=== PATIENT | female | born 1980 | race Caucasian/White ===

== ENCOUNTER 2020-01-27 14:54 | Emergency (ER) | payer MEDICAID, MEDICARE ==
[~2020-01-27] VITALS: Ht 152.4 cm; Wt 108.9 kg
[2020-01-27 15:06] VITALS: BP 112/72
--- NOTE | 2020-01-27 15:06 | Emergency Room Report ---
History of Present Illness General Chief Complaint: Abnormal Labs Source: Patient (Emmanuel Gorman MD) Present Illness HPI Patient is a 39-year-old female presents for increased generalized body aches and weakness. Reports having recent hospitalization approximately 1 week ago. States that she has multiple medication allergies. States she recently traveled from [place]. Patient denies any recent trauma. Reports having discomfort to her teeth. She states that she is currently taking Suboxone as well as multiple medications for hypertension and diabetes. She is on Lantus. Blood sugar was noted to be approximately 400 by EMS. Patient states she was recently hospitalized in [place] and left the hospital AGAINST MEDICAL ADVICE.Metformin but did not take Lantus. (Emmanuel Gorman MD) Allergies: Coded Allergies: HALOPERIDOL (Verified Allergy, Unknown, 01/27/20) PROMETHAZINE (Verified Allergy, Unknown, 01/27/20) COVID-19 Screening Contact w/high risk pt: No Experienced COVID-19 symptoms?: No COVID-19 Testing performed CLIMATE CHANGE RISK ASSESSOR: No (Emmanuel Gorman MD) Patient History Past Medical History: see triage record Reviewed Nursing Documentation: PMH: Agreed; PSxH: Agreed (Emmanuel Gorman MD) Nursing Documentation-PMH Past Medical History: No History, Except For Hx Hypertension: Yes Hx Diabetes: Yes Hx Cerebrovascular Accident: Yes (Emmanuel Gorman MD) Review of Systems All Other Systems: negative except mentioned in HPI (Emmanuel Gorman MD) Physical Exam Vital Signs Date Time Temp Pulse Resp B/P (MAP) Pulse Ox O2 Delivery O2 Flow Rate FiO2 01/27/20 14:56 98.2 74 16 112/72 (85) 100 Room Air Sp02 EP Interpretation: reviewed, normal General Appearance: normal inspection, no apparent distress, alert, GCS 15, non-toxic, obese Head: atraumatic ENT: normal ENT inspection, hearing grossly normal, normal voice Neck: normal inspection, full range of motion, supple, no bony tend Respiratory: normal inspection, lungs clear, normal breath sounds, no respiratory distress, no retraction, no wheezing Cardiovascular #1: regular rate, rhythm, no edema Gastrointestinal: normal inspection, normal bowel sounds, non tender, soft, no guarding, no hernia Genitourinary: no CVA tenderness Musculoskeletal: normal inspection, back normal, normal range of motion Neurologic: alert, motor strength/tone normal, responsive, speech normal, normal inspection Psychiatric: normal inspection, judgement/insight normal, mood/affect normal (Emmanuel Gorman MD) Procedures Critical Care Time Critical Care Time Total Critical Care Time: 60 min bedside evaluation and treatment excludes procedures (EKG). Reason for critical care: evaluation of hemiparesis, discussion with acute stroke MD, repeat evaluations - sedation and repeat neurologic exams, glycemic control Possible complications: hypotension, hypertension, ID, shock, arrhythmias, metabolic acidosis, end organ damage, respiratory failure. Interventions: initiation of transfer to higher level of care, repeat evaluations, sedation - repeat exams, discussions with family Course:Patient initially presented post collapse. She took her own Suboxone leading to respiratory depression and administration of Narcan. She was observed through the night. At attempted discharge in the AM the patient demonstrated new left hemiparesis. Second workup undertaken. Immediate discussion with Dr. Linares at [facility]. Patient outside of window for tPA and possibly intervention, however she considered taking the patient. Patient with nausea - treated with Reglan and Benadryl. Increased agitation. Ativan given. Unable to sedate. Haldol given (tolerated with improvement although in the face of reported allergy). Repeat evaluations. Discussion of plan with sister and brother. Improved, but Ativan needed to be repeated. Initially declined by Maria. Recall Dr. Linares. Contact [facility] and presented. Accepted by Maria. Patient improved from agitated state but worsened from presentation. Consultations: nursing staff, family, Maria LAMAS - several calls, [facility] transfer Performed by: Dr. Loco Tolerated well condition = serious (Jaun Loco MD) Medical Decision Making Diagnostic Impression: Primary Impression: Stroke Qualified Codes: I63.9 - Cerebral infarction, unspecified Additional Impressions: Hyperglycemia Noncompliance with medications Opiate abuse, episodic Hemiparesis Qualified Codes: G81.94 - Hemiplegia, unspecified affecting left nondominant side ER Course Patient present for increased generalized weakness and elevated blood sugar. Differential diagnosis include was not limited to medication noncompliance, dental infection, urinary tract infection, among others. Because of complexity of patient's case laboratory tests and imaging studies were ordered. Diabetes and is reportedly supposed to take Lantus daily. She reports not taking her Lantus today. Patient was given IV fluids as well as IV insulin. She was started on IV hydration. She was given oral amoxicillin due to presumed dental carry infection. Patient apparently consumed Suboxone while in the emergency department. Patient was noted to be somnolent with diminished oxygen saturation and was therefore given 2 mg of IV Narcan. Patient had subsequent improvement in her mental status. CT imaging of the head showed findings consistent with recent CVA. Patient is noted to have improvement in her blood sugar over time. She was given Rocephin for urinary tract infection.Patient was endorsed to the oncoming physician Labs Test 01/27/20 15:08 01/27/20 16:39 01/27/20 17:54 White Blood Count 16.3 K/UL (4.8-10.8) Red Blood Count 5.37 M/UL (4.20-5.40) Hemoglobin 14.4 G/DL (12.0-16.0) Hematocrit 42.0 % (37.0-47.0) Mean Corpuscular Volume 78 FL (80-99) Mean Corpuscular Hemoglobin 26.8 PG (27.0-31.0) Mean Corpuscular Hemoglobin Concent 34.3 G/DL (32.0-36.0) Red Cell Distribution Width 12.7 % (11.6-14.8) Platelet Count 264 K/UL (150-450) Mean Platelet Volume 7.7 FL (6.5-10.1) Neutrophils (%) (Auto) 59.4 % (45.0-75.0) Lymphocytes (%) (Auto) 25.7 % (20.0-45.0) Monocytes (%) (Auto) 7.3 % (1.0-10.0) Eosinophils (%) (Auto) 1.8 % (0.0-3.0) Basophils (%) (Auto) 5.8 % (0.0-2.0) Sodium Level 136 MMOL/L (136-145) Potassium Level 3.4 MMOL/L (3.5-5.1) Chloride Level 99 MMOL/L (98-107) Carbon Dioxide Level 26 MMOL/L (21-32) Anion Gap 11 mmol/L (5-15) Blood Urea Nitrogen 17 mg/dL (7-18) Creatinine 1.1 MG/DL (0.55-1.30) Estimat Glomerular Filtration Rate 55.0 mL/min (>60) Glucose Level 439 MG/DL (74-106) Calcium Level 9.3 MG/DL (8.5-10.1) Total Bilirubin 0.5 MG/DL (0.2-1.0) Aspartate Amino Transf (AST/SGOT) 17 U/L (15-37) Alanine Aminotransferase (ALT/SGPT) 33 U/L (12-78) Alkaline Phosphatase 89 U/L (46-116) Troponin I 0.009 ng/mL (0.000-0.056) C-Reactive Protein, Quantitative 1.7 mg/dL (0.00-0.90) Total Protein 6.8 G/DL (6.4-8.2) Albumin 3.4 G/DL (3.4-5.0) Globulin 3.4 g/dL Albumin/Globulin Ratio 1.0 (1.0-2.7) Lipase 77 U/L (73-393) Serum Alcohol < 3 mg/dL Urine Color Yellow Urine Appearance Cloudy Urine pH 5 (4.5-8.0) Urine Specific [place] 1.015 (1.005-1.035) Urine Protein 2+ (NEGATIVE) Urine Glucose (UA) 4+ (NEGATIVE) Urine Ketones Negative (NEGATIVE) Urine Blood Negative (NEGATIVE) Urine Nitrite Negative (NEGATIVE) Urine Bilirubin Negative (NEGATIVE) Urine Urobilinogen Normal MG/DL (0.0-1.0) Urine Leukocyte Esterase Negative (NEGATIVE) Urine RBC 0-2 /HPF (0 - 2) Urine WBC 2-4 /HPF (0 - 2) Urine Squamous Epithelial Cells Many /LPF (NONE/OCC) Urine Bacteria Moderate /HPF (NONE) Urine Yeast Moderate /HPF (NONE) Urine HCG, Qualitative Negative (NEGATIVE) Urine Opiates Screen Negative (NEGATIVE) Urine Barbiturates Screen Negative (NEGATIVE) Phencyclidine (PCP) Screen Negative (NEGATIVE) Urine Amphetamines Screen Negative (NEGATIVE) Urine Benzodiazepines Screen Negative (NEGATIVE) Urine Cocaine Screen Negative (NEGATIVE) Urine Marijuana (THC) Screen Negative (NEGATIVE) POC Whole Blood Glucose 228 MG/DL (74-106) (Emmanuel Gorman MD) ER Course See above note. H/O stroke in [facility] 1 week ago with patient signing out AMA to attend sister's birthday constitution party at the [facility]. She collapsed there and was brought to the ED by EMS. In the ED she apparently took her own Suboxone (from her purse) and had decreased oxygen saturation requiring administration of Narcan. She awoke fully after Narcan and was agitated. She was observed using both hands after being awakened. Patient was observed for several hours after. Patient had been observed in no distress talking on her phone using both hands. However, at 00:20 patient stated she could not use her left arm as reported in nursing notes. Unclear exact "last known well time". When confronted with discharge in the AM she stated she could not walk and stated her "arms were not working". In the waiting room, patient lay on the floor and went to sleep. Family did not come. Patient brought back into ED treatment area for re-evaluation as directed by hand hose cutter and me. My initial evaluation of the patient revealed the patient has left hemiparesis with upgoing toe on the left-hand side. She is alert and speaking without difficulty. Possible R gaze preference with some L facial weakness. Not hypoglycemic. Repeating laboratory studies and CT. EKG normal sinus rhythm. See labs below. Suggestion of subacute stroke on CT (R frontal). Immediately discussed with Dr. Linares at [facility]. She feels outside of window for thrombolytics. Arranging for transfer for subacute stroke. Patient c/o nausea and headache. Reglan and benadryl ordered. 1132 More agitated after Reglan/Benadryl. Ativan ordered. Soft restraint as trying to pull out palencia. Not using L hand. (Soft restraint never used.) Continued agitation. Haldol ordered verbally. When attempt to enter - Haldol allergy noted and order cancelled. It had apparently been given already. Patient improved after Haldol and no signs of allergy. 1249 Patient agitation improved. Discussed with sister, Yvrose and brother, All who understand assessment and treatment plan. [facility] called back and apparently considering not accepting patient. Discussed ag ain with Dr. Linares. She will discuss with others. Claire Rivera. 1500 Discussed with Miguel. Accepted by Maria 1510 Patient protecting airway and follows verbal commands. Glucose 261. VS stable. Condition is serious but transfer to higher level of care benefit outweighs risk. Also patient determined to be stable for transfer by me. Laboratory Tests Test 01/27/20 15:08 01/27/20 16:08 01/27/20 16:39 01/27/20 16:52 White Blood Count 16.3 K/UL (4.8-10.8) H Red Blood Count 5.37 M/UL (4.20-5.40) Hemoglobin 14.4 G/DL (12.0-16.0) Hematocrit 42.0 % (37.0-47.0) Mean Corpuscular Volume 78 FL (80-99) L Mean Corpuscular Hemoglobin 26.8 PG (27.0-31.0) L Mean Corpuscular Hemoglobin Concent 34.3 G/DL (32.0-36.0) Red Cell Distribution Width 12.7 % (11.6-14.8) Platelet Count 264 K/UL (150-450) Mean Platelet Volume 7.7 FL (6.5-10.1) Neutrophils (%) (Auto) 59.4 % (45.0-75.0) Lymphocytes (%) (Auto) 25.7 % (20.0-45.0) Monocytes (%) (Auto) 7.3 % (1.0-10.0) Eosinophils (%) (Auto) 1.8 % (0.0-3.0) Basophils (%) (Auto) 5.8 % (0.0-2.0) H Sodium Level 136 MMOL/L (136-145) Potassium Level 3.4 MMOL/L (3.5-5.1) L Chloride Level 99 MMOL/L (98-107) Carbon Dioxide Level 26 MMOL/L (21-32) Anion Gap 11 mmol/L (5-15) Blood Urea Nitrogen 17 mg/dL (7-18) Creatinine 1.1 MG/DL (0.55-1.30) Estimated Glomerular Filtration Rate 55.0 mL/min (>60) Glucose Level 439 MG/DL (74-106) H Calcium Level 9.3 MG/DL (8.5-10.1) Total Bilirubin 0.5 MG/DL (0.2-1.0) Aspartate Amino Transferase (AST) 17 U/L (15-37) Alanine Aminotransferase (ALT) 33 U/L (12-78) Alkaline Phosphatase 89 U/L (46-116) Troponin I 0.009 ng/mL (0.000-0.056) C-Reactive Protein, Quantitative 1.7 mg/dL (0.00-0.90) H Total Protein 6.8 G/DL (6.4-8.2) Albumin 3.4 G/DL (3.4-5.0) Globulin 3.4 g/dL Albumin/Globulin Ratio 1.0 (1.0-2.7) Lipase 77 U/L (73-393) Serum Alcohol < 3 mg/dL POC Whole Blood Glucose 323 MG/DL (74-106) H 276 MG/DL (74-106) H Urine Color Yellow Urine Appearance Cloudy Urine pH 5 (4.5-8.0) Urine Specific [place] 1.015 (1.005-1.035) Urine Protein 2+ (NEGATIVE) H Urine Glucose (UA) 4+ (NEGATIVE) H Urine Ketones Negative (NEGATIVE) Urine Blood Negative (NEGATIVE) Urine Nitrite Negative (NEGATIVE) Urine Bilirubin Negative (NEGATIVE) Urine Urobilinogen Normal MG/DL (0.0-1.0) Urine Leukocyte Esterase Negative (NEGATIVE) Urine RBC 0-2 /HPF (0 - 2) Urine WBC 2-4 /HPF (0 - 2) Urine Squamous Epithelial Cells Many /LPF (NONE/OCC) H Urine Bacteria Moderate /HPF (NONE) H Urine Yeast Moderate /HPF (NONE) H Urine HCG, Qualitative Negative (NEGATIVE) Urine Opiates Screen Negative (NEGATIVE) Urine Barbiturates Screen Negative (NEGATIVE) Phencyclidine (PCP) Screen Negative (NEGATIVE) Urine Amphetamines Screen Negative (NEGATIVE) Urine Benzodiazepines Screen Negative (NEGATIVE) Urine Cocaine Screen Negative (NEGATIVE) Urine Marijuana (THC) Screen Negative (NEGATIVE) Test 01/27/20 17:54 01/27/20 21:15 01/28/20 09:14 01/28/20 09:20 POC Whole Blood Glucose 228 MG/DL (74-106) H 158 MG/DL (74-106) H 261 MG/DL (74-106) H White Blood Count 15.0 K/UL (4.8-10.8) H Red Blood Count 5.43 M/UL (4.20-5.40) H Hemoglobin 14.4 G/DL (12.0-16.0) Hematocrit 43.5 % (37.0-47.0) Mean Corpuscular Volume 80 FL (80-99) Mean Corpuscular Hemoglobin 26.6 PG (27.0-31.0) L Mean Corpuscular Hemoglobin Concent 33.1 G/DL (32.0-36.0) Red Cell Distribution Width 12.8 % (11.6-14.8) Platelet Count 231 K/UL (150-450) Mean Platelet Volume 7.8 FL (6.5-10.1) Neutrophils (%) (Auto) 76.5 % (45.0-75.0) H Lymphocytes (%) (Auto) 15.6 % (20.0-45.0) L Monocytes (%) (Auto) 4.6 % (1.0-10.0) Eosinophils (%) (Auto) 2.3 % (0.0-3.0) Basophils (%) (Auto) 1.0 % (0.0-2.0) Prothrombin Time 10.6 SEC (9.30-11.50) Prothrombin Time INR 1.0 (0.9-1.1) Activated Partial Thromboplast Time 23 SEC (23-33) Urine Color Brown Urine Appearance Clear Urine pH 5 (4.5-8.0) Urine Specific [place] 1.025 (1.005-1.035) Urine Protein 2+ (NEGATIVE) H Urine Glucose (UA) 3+ (NEGATIVE) H Urine Ketones Negative (NEGATIVE) Urine Blood Negative (NEGATIVE) Urine Nitrite Negative (NEGATIVE) Urine Bilirubin Negative (NEGATIVE) Urine Urobilinogen Normal MG/DL (0.0-1.0) Urine Leukocyte Esterase Negative (NEGATIVE) Urine RBC 0 /HPF (0 - 2) Urine WBC 0 /HPF (0 - 2) Urine Squamous Epithelial Cells Occasional /LPF Urine Bacteria Occasional /HPF (NONE) Sodium Level 137 MMOL/L (136-145) Potassium Level 3.8 MMOL/L (3.5-5.1) Chloride Level 105 MMOL/L (98-107) Carbon Dioxide Level 26 MMOL/L (21-32) Anion Gap 6 mmol/L (5-15) Blood Urea Nitrogen 17 mg/dL (7-18) Creatinine 0.7 MG/DL (0.55-1.30) Estimated Glomerular Filtration Rate > 60 mL/min (>60) Glucose Level 239 MG/DL (74-106) #H Calcium Level 8.7 MG/DL (8.5-10.1) Total Bilirubin 0.5 MG/DL (0.2-1.0) Aspartate Amino Transferase (AST) 20 U/L (15-37) Alanine Aminotransferase (ALT) 28 U/L (12-78) Alkaline Phosphatase 78 U/L (46-116) Total Creatine Kinase 243 U/L (26-308) Troponin I 0.018 ng/mL (0.000-0.056) Pro-B-Type Natriuretic Peptide 299 pg/mL (0-125) H Total Protein 6.7 G/DL (6.4-8.2) Albumin 3.3 G/DL (3.4-5.0) L Globulin 3.4 g/dL Albumin/Globulin Ratio 1.0 (1.0-2.7) Urine Opiates Screen Negative (NEGATIVE) Urine Barbiturates Screen Negative (NEGATIVE) Phencyclidine (PCP) Screen Negative (NEGATIVE) Urine Amphetamines Screen Negative (NEGATIVE) Urine Benzodiazepines Screen Negative (NEGATIVE) Urine Cocaine Screen Negative (NEGATIVE) Urine Marijuana (THC) Screen Negative (NEGATIVE) (Jaun Loco MD) EKG Diagnostic Results Rate: normal Rhythm: NSR ST Segments: no acute changes (Jaun Loco MD) Rhythm Strip Diag. Results EP Interpretation: yes Rhythm: NSR, no PVC's, no ectopy (Jaun Loco MD) Chest X-Ray Diagnostic Results Chest X-Ray Diagnostic Results : Chest X-Ray Ordered: Yes # of Views/Limited/Complete: 1 View Indication: Other EP Interpretation: Yes Interpretation: no consolidation, no effusion, no pneumothorax Impression: No acute disease Electronically Signed by: Electronically signed by Jaun Loco MD (Jaun Loco MD) Other X-Ray Diagnostic Results Other X-Ray Diagnostic Results : X-Ray ordered: Left shoulder # of Views/Limited Vs Complete: 3 View Indication: Pain EP Interpretation: Yes Interpretation: no dislocation, no soft tissue swelling, no fractures Impression: No acute disease Electronically Signed by: Electronically signed by Jaun Loco MD (Jaun Loco MD) CT/MRI/US Diagnostic Results CT/MRI/US Diagnostic Results : Imaging Test Ordered: CT head Impression R frontal subacute stroke (Jaun Loco MD) Last Vital Signs Date Time Temp Pulse Resp B/P (MAP) Pulse Ox O2 Delivery O2 Flow Rate FiO2 01/27/20 14:56 98.2 74 16 112/72 (85) 100 Room Air Status: improved (Emmanuel Gorman MD) Last Vital Signs Date Time Temp Pulse Resp B/P (MAP) Pulse Ox O2 Delivery O2 Flow Rate FiO2 01/28/20 16:00 98.3 69 20 169/80 99 Room Air Status: worsened (Jaun Loco MD) Disposition: SHORT-TERM HOSP Condition: Stable Scripts Cephalexin* (KEFLEX*) 500 Mg Tablet 500 MG ORAL EVERY 6 HOURS, #28 CAP Prov: Emmanuel Gorman MD 01/27/20 Naloxone HCl (Narcan) 4 Mg [place] 4 MG NS DAILY, #1 SPRAY Prov: Emmanuel Gorman MD 01/27/20 Emmanuel Gorman MD Jan 27, 2020 15:06 Jaun Loco MD Jan 28, 2020 08:36
[2020-01-27] MEDS ORDERED: Insulin Human Regular 100units/ml 3ml IV ONE (15:15)
[2020-01-27] MEDS ORDERED: Acetaminophen 500mg (ES) tab ORAL ONE (15:15)
[2020-01-27 15:26] LABS: BASOPHILS % (AUTO) 5.8 % (0.0-2.0); EOSINOPHILS % (AUTO) 1.8 % (0.0-3.0); HEMOGLOBIN 14.4 G/DL (12.0-16.0); LYMPHOCYTES % (AUTO) 25.7 % (20.0-45.0); MEAN CORPUSCULAR VOLUME 78 FL (80-99); MONOCYTES % (AUTO) 7.3 % (1.0-10.0); NEUTROPHILS % (AUTO) 59.4 % (45.0-75.0); PLATELET COUNT 264 K/UL (150-450); RED BLOOD COUNT 5.37 M/UL (4.20-5.40); RED CELL DISTRIBUTION WIDTH 12.7 % (11.6-14.8); WHITE BLOOD COUNT 16.3 K/UL (4.8-10.8)
[2020-01-27 15:52] LABS: ANION GAP 11 mmol/L (5-15); BLOOD UREA NITROGEN 17 mg/dL (7-18); CALCIUM 9.3 MG/DL (8.5-10.1); CARBON DIOXIDE 26 MMOL/L (21-32); CHLORIDE 99 MMOL/L (98-107); CREATININE 1.1 MG/DL (0.55-1.30); POTASSIUM 3.4 MMOL/L (3.5-5.1); SODIUM 136 MMOL/L (136-145)
[2020-01-27 16:01] LABS: ALANINE AMINOTRANSFERASE 33 U/L (12-78); ALBUMIN 3.4 G/DL (3.4-5.0); ALKALINE PHOSPHATASE 89 U/L (46-116); ASPARTATE AMINO TRANSFERASE 17 U/L (15-37); BILIRUBIN,TOTAL 0.5 MG/DL (0.2-1.0)
[2020-01-27] MEDS ORDERED: metFORMIN 500mg tab ORAL ONE (16:30)
--- NOTE | 2020-01-27 16:56 | Diagnostic Imaging Report ---
CT HEAD Without Contrast HISTORY: Dizziness TECHNIQUE: One or more of the following dose reduction techniques were used: automated exposure control, adjustment of the mA and/or kV according to patient size, use of iterative reconstruction technique. One or more of the following dose reduction techniques were used: automated exposure control, adjustment of the mA and/or kV according to patient size, use of iterative reconstruction technique. Total Exam volume computed tomography dose index (CTDIvol) = 53.4 mGy and Dose Length Product (DLP) = 1018.8 mGY-c COMPARISON: None FINDINGS: There are areas of hypoattenuation in the right occipital and parietal lobe with volume loss which have the appearance of areas of prior infarct. There is no acute hemorrhage or mass-effect or midline shift. Additional area of hyperattenuation noted in the right basal ganglia. Paranasal sinuses and mastoid air cells are unremarkable. No fractures appreciated. IMPRESSION: Areas of hypoattenuation within the right basal ganglia and right occipital and parietal lobe which have the appearance of prior areas of infarct however if concern for acute ischemia, recommend follow- up with MRI.
[2020-01-27 17:05] VITALS: BP 106/65
[2020-01-27 17:08] LABS: APPEARANCE,URINE CLOUDY; BILIRUBIN, URINE NEGATIVE (NEGATIVE); GLUCOSE, URINE (UA) 4+ (NEGATIVE); KETONES,URINE NEGATIVE (NEGATIVE); LEUKOCYTE ESTERASE ,URINE NEGATIVE (NEGATIVE); NITRITE,URINE NEGATIVE (NEGATIVE); PH,URINE 5 (4.5-8.0); PROTEIN,URINE 2+ (NEGATIVE); UROBILINOGEN,URINE NORMAL MG/DL (0.0-1.0)
[2020-01-27 17:11] LABS: COLOR,URINE YELLOW
[2020-01-27] MEDS ORDERED: cefTRIAXone 1 GM in NS 55 ML IVPB ONE (17:45)
[2020-01-27] MEDS ORDERED: Naloxone 0.4mg/ml Inj ONE (18:02)
[2020-01-27] MEDS ORDERED: Naloxone 1mg/ml 2ml ONE (18:03)
[2020-01-27] MEDS ORDERED: Naloxone 1mg/ml 2ml IVP ONE ×3 (18:15→18:30)
[2020-01-27 18:53] VITALS: BP 104/52
[2020-01-27 19:15] VITALS: BP 101/59
[2020-01-27 20:10] VITALS: BP 117/55
[2020-01-27] MEDS ORDERED: NARCAN4 MG NS (20:56)
[2020-01-27 21:00] VITALS: BP 123/62
[2020-01-27] MEDS ORDERED: CEPHALEXIN500 M1 ORAL (21:12)
[2020-01-28] VITALS (10 sets, daily range): BP systolic 127–169; BP diastolic 47–90
[2020-01-28] MEDS ORDERED: GABAPENTIN400 MG ORAL (09:25)
[2020-01-28] MEDS ORDERED: BUPRENORPHIN-N1 EACH SL (09:25)
[2020-01-28] MEDS ORDERED: METFORMIN HCL500 M1 ORAL (09:25)
[2020-01-28] MEDS ORDERED: LANTUS SOL100 UNIT/1 SUBQ (09:25)
[2020-01-28] MEDS ORDERED: LABETALOL HCL200 MG ORAL (09:25)
[2020-01-28] MEDS ORDERED: MEDROXYPROGESTE10 MG PO (09:25)
[2020-01-28] MEDS ORDERED: LOSARTAN POTASS50 MG ORAL (09:25)
[2020-01-28 09:56] LABS: EOSINOPHILS % (AUTO) 2.3 % (0.0-3.0); HEMATOCRIT 43.5 % (37.0-47.0); HEMOGLOBIN 14.4 G/DL (12.0-16.0); LYMPHOCYTES % (AUTO) 15.6 % (20.0-45.0); MEAN CORPUSCULAR VOLUME 80 FL (80-99); MONOCYTES % (AUTO) 4.6 % (1.0-10.0); NEUTROPHILS % (AUTO) 76.5 % (45.0-75.0); PLATELET COUNT 231 K/UL (150-450); RED BLOOD COUNT 5.43 M/UL (4.20-5.40); RED CELL DISTRIBUTION WIDTH 12.8 % (11.6-14.8)
[2020-01-28 09:58] LABS: ANION GAP 6 mmol/L (5-15); BLOOD UREA NITROGEN 17 mg/dL (7-18); CALCIUM 8.7 MG/DL (8.5-10.1); CARBON DIOXIDE 26 MMOL/L (21-32); CHLORIDE 105 MMOL/L (98-107); CREATININE 0.7 MG/DL (0.55-1.30); POTASSIUM 3.8 MMOL/L (3.5-5.1); SODIUM 137 MMOL/L (136-145)
--- NOTE | 2020-01-28 09:59 | Diagnostic Imaging Report ---
EXAM: XR Chest, 1 View CLINICAL HISTORY: PAIN TECHNIQUE: Frontal view of the chest. COMPARISON: No relevant prior studies available. FINDINGS: Lungs: Low lung volumes secondary to poor inspiration which extends to its bronchovascular markings and cardiac silhouette. Pleural space: Unremarkable. No pneumothorax. Heart: Mild cardiomegaly. Mediastinum: Unremarkable. Bones/joints: Unremarkable. IMPRESSION: No focal infiltrate.
--- NOTE | 2020-01-28 09:59 | Diagnostic Imaging Report ---
EXAM: XR Left Shoulder Complete, 2 or More Views CLINICAL HISTORY: PAIN TECHNIQUE: Two or more views of the left shoulder. COMPARISON: No relevant prior studies available. FINDINGS: Bones/joints: Unremarkable. No acute fracture. No dislocation. Soft tissues: Unremarkable. IMPRESSION: No fracture or dislocation.
--- NOTE | 2020-01-28 10:06 | Diagnostic Imaging Report ---
EXAM: CT Head Without Intravenous Contrast CLINICAL HISTORY: WEAK TECHNIQUE: Axial computed tomography images of the head/brain without intravenous contrast. CTDI is 53 mGy and DLP is 1125 mGy-cm. One or more of the following dose reduction techniques were used: automated exposure control, adjustment of the mA and/or kV according to patient size, use of iterative reconstruction technique. COMPARISON: Head CT January 27, 2020 FINDINGS: No acute intracranial hemorrhage. No midline shift or mass effect. When compared to CT scan January 27, 2020, there is mild increase in the degree of low attenuation within the right frontal lobe which may represent changes of a subacute infarct. A dedicated brain MRI is recommended. Encephalomalacia in the right frontoparietal lobe along the watershed distribution, consistent with old infarct. Encephalomalacia adjacent to the right caudate nucleus, consistent with old infarct. Associated, mild ex vacuo dilatation of the frontal horn of the right lateral ventricle. The ventricles and sulci are commensurate with age. The visualized orbits appear grossly unremarkable. The calvarium is intact. The visualized paranasal sinuses and mastoid air cells are grossly clear. IMPRESSION: No acute intracranial hemorrhage. When compared to CT scan January 27, 2020, there is mild increase in the degree of low attenuation within the right frontal lobe which may represent changes of a subacute infarct. A dedicated brain MRI is recommended. Encephalomalacia in the right frontoparietal lobe along the watershed distribution, consistent with old infarct. Encephalomalacia adjacent to the right caudate nucleus, consistent with old infarct. Associated, mild ex vacuo dilatation of the frontal horn of the right lateral ventricle.
[2020-01-28 10:07] LABS: ALANINE AMINOTRANSFERASE 28 U/L (12-78); ALBUMIN 3.3 G/DL (3.4-5.0); ALKALINE PHOSPHATASE 78 U/L (46-116); ASPARTATE AMINO TRANSFERASE 20 U/L (15-37); BILIRUBIN,TOTAL 0.5 MG/DL (0.2-1.0); CREATINE KINASE 243 U/L (26-308)
[2020-01-28 10:09] LABS: APPEARANCE,URINE CLEAR; BILIRUBIN, URINE NEGATIVE (NEGATIVE); COLOR,URINE BROWN; GLUCOSE, URINE (UA) 3+ (NEGATIVE); KETONES,URINE NEGATIVE (NEGATIVE); LEUKOCYTE ESTERASE ,URINE NEGATIVE (NEGATIVE); NITRITE,URINE NEGATIVE (NEGATIVE); PH,URINE 5 (4.5-8.0); PROTEIN,URINE 2+ (NEGATIVE); UROBILINOGEN,URINE NORMAL MG/DL (0.0-1.0)
[2020-01-28] MEDS ORDERED: Metoclopramide 10mg/2ml Inj IVP ONE (11:30)
[2020-01-28] MEDS ORDERED: DiphenhydrAMINE 50mg/ml Inj IVP ONE (11:30)
[2020-01-28] MEDS ORDERED: LORazepam Inj 2mg/ml 1ml IV ONE ×2 (12:00→14:15)
[2020-01-28] MEDS ORDERED: Haloperidol 5mg/ml Inj ONE (12:12)
[2020-01-28] MEDS ORDERED: DiphenhydrAMINE 50mg/ml Inj ONE (12:23)
[2020-01-28] MEDS ORDERED: LORazepam Inj 2mg/ml 1ml ONE (14:23)
== END 2020-01-28 16:15 | disposition short-term general hospital (02) ==
LOC: EDBD 14:54 → EMR 15:00
DX: I63.9 Cerebral infarction, unspecified (principal); Z91.14 Patient's other noncompliance with medication regimen; F11.10 Opioid abuse, uncomplicated; G81.94 Hemiplegia, unspecified affecting left nondominant side; E11.65 Type 2 diabetes mellitus with hyperglycemia; I10 Essential (primary) hypertension; Z88.8 Allergy status to other drugs, medicaments and biological substances; Z79.4 Long term (current) use of insulin; E66.9 Obesity, unspecified; R45.1 Restlessness and agitation; R11.0 Nausea; R51.9 Headache, unspecified; M25.512 Pain in left shoulder; G93.89 Other specified disorders of brain; I51.7 Cardiomegaly
CPT/HCPCS: 36415; 70450; 71045; 73030; 80053; 80307; 81001; 81003; 81025; 82550; 82962; 83690; 83880; 84484; 85025; 85610; 85730; 86140; 87086; 87181; 93005; 96361; 96365; 96375; 96376; G0480; J0696; J1200; J1630; J1815; J2310; J2765; J7030; U0002; Z7502; 99291; J8499